=== PATIENT | male | born 1955 | race Two or more races ===

== ENCOUNTER → 2017-11-10 | Day surgery (SDC) | payer OTHER ==
[~2017-11-10] VITALS: Ht 175.3 cm; Wt 81.0 kg
[~2017-11-10] MED LIST: ASPI-516 CHEW; CHLORHEXIDINE GLUCONATE 2 % 1 PACK (2 CLOTHS) TOPICAL PRN; HYDR-4107 PO; LACTATED RINGER'S 1000 ML IV PRN; LIDOCAINE 1%/EPINEPHrine 1:100,000 SOLN 30 ML VIAL ONE; METOPROLOL TARTRATE 25 MG TAB PO PRN; POVIDONE IODINE 5% (ANTISEPSIS KIT) 4 APPLICATIONS EACH NARE PRN; SODIUM CHLORID 0.9% 500 ML IV PRN; ceFAZolin 2 GM PREMIX 50 ML IV SCH; fentaNYL CITRATE 250 MCG/5 ML AMP ONE
[2017-11-10 08:50] VITALS: PULSE 55
[2017-11-10 10:20] VITALS: BP 125/66; PULSE 15; RESP 16; TEMP 98; O2SAT 98
--- NOTE | 2017-11-10 21:35 | MP ---
cc: RIGOBERTO GEORGE DATE OF SURGERY 11/10/17 PREOPERATIVE DIAGNOSIS Large mass left neck, supraclavicular area lipoma POSTOPERATIVE DIAGNOSIS Large mass left neck, supraclavicular area lipoma 4 x 5 cm OPERATION Excision large lipoma left neck 4 x [address] Soledad George ANESTHESIA General INDICATIONS A 62-year-old male with slow growing mass of the left lower neck. It is becoming more painful, particularly when he tries to lift any weight and strains. 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 The patient was explained the possible nature of the lipoma being multi-lobulated and need to have it removed in the operating room under anesthesia to facilitate as complete removal as possible. The patient understands the possibility of the general risks and complications including anesthesia, possible bleeding, infection, wound healing problems, also in the long run the lipoma may possibly come back if there is any tumor tissue left in the deeper areas. PROCEDURE IN DETAIL The patient was brought to the operating room, was given supine position. Anesthesia was started. IV antibiotic had been given. the time-out was called and completed. Prep and drape was done. A horizontal oblique neck crease line was marked over the center of the mass itself. Local anesthetic was injected in the skin and dermal planes. The incision was made through the skin dermis and then using a pointed scissors to separate the tissue slowly the lipoma was identified. It was noted to be multi-lobulated without a clear capsule formation. The shape of the tumor was more rectangular than a round mass that pointed to the lipoma being more of the lobulated variety. Each of the borders of the lipoma was reached by blunt dissection. The border of the external jugular vein was identified and protected. The lipoma was peeled off the vein slowly and carefully. The small portion of the fat that was going around the vein was also removed leaving the portion of the fat that was behind the vein intact. No other importance structures were noted in the vicinity. The bleeding was minimal, less than 1 ml. The closure was done with pulling the dermis approximately 5-6 mm from the skin edge first to provide a stable dermal layer over the vein followed by skin closure with internal Vicryl sutures only. The area was cleaned, Steri-Strip was applied. The patient remained stable. Intraoperative blood loss less than 1 mL. No complications. MD KIANA Acevedo/ /8:36 AM /9:20 PM
== END | disposition home or self-care (01) ==
LOC: PHSDC 06:28
PROVIDERS: ATTEND Plastic Surgery
DX: D17.0 Benign lipomatous neoplasm of skin and subcutaneous tissue of head, face and neck (principal)
CPT/HCPCS: 00300; 21552; 88304; J0690; J3010; J7120